=== PATIENT | male | born 1960 | race Caucasian/White ===

== ENCOUNTER → 2020-11-20 | Outpatient (CLI) | payer MEDICARE | LOC: KOH-I 11:15 | DX: M25.571 Pain in right ankle and joints of right foot (principal); M19.071 Primary osteoarthritis, right ankle and foot | CPT/HCPCS: 73590; 73610; 73630 ==

== ENCOUNTER → 2021-08-18 | Outpatient (CLI) | payer MEDICARE | LOC: KOH-I 14:45 | DX: R07.82 Intercostal pain (principal); M62.830 Muscle spasm of back | CPT/HCPCS: 71045; 71101 ==